=== PATIENT | female | born 1960 | race Caucasian/White ===

== ENCOUNTER 2020-04-08 06:52 | Inpatient (IN) | payer BC ==
[~2020-04-08] VITALS: Ht 162.6 cm; Wt 80.0 kg
[2020-04-08] VITALS (306 sets, daily range): BP systolic 101–113; BP diastolic 77–86; PULSE 102–121; TEMP 97.7–98.5; O2SAT 59–100
[~2020-04-08 06:52] MED LIST: BENICAR 20MG TA20 MG PO; CLEOCIN HC150 MG/CAP PO; HCTZ12.5TAB PO; LEVAQUIN 5500 MG/TAB PO; LEVAQUIN 750MG750 M1 PO; LOTENSIN 1010 MG/TAB PO; LOTENSIN HCT 101 TAB PO; PERCOCET 325 MG1 TA2 PO; PREDNISONE20 MG PO; PROAIR HFA0.09 MG/AC IH; TUMS500 MG PO; VICODIN 5/5001 UDTAB PO; XANAX .25M0.25 MG/TA PO
[2020-04-08 07:55] LABS: BASO % 0.3 % (0.0-2.0); GRAN # 4.6 (1.4-6.5); HEMATOCRIT 47.4 % (37.0-47.0); LYMPH % 27.3 % (20.0-51.0); MEAN CELL VOLUME 105 fl (80.0-100.0); MEAN CORPUSCULAR HEMOGLOBIN 35 pg (27.0-31.0); MEAN CORPUSCULAR HGB CONC 34 g/dl (33.0-37.0); MONO # 0.6 (0.1-0.6); MONO % 8.1 % (1.7-9.3); PLATELET COUNT 137 K/mm3 (130-400); RED BLOOD COUNT 4.53 M/mm3 (4.10-5.30); REDCELL DISTRIBUTION WIDTH-CV 14.6 % (11.5-14.5)
[2020-04-08 08:01] LABS: ALBUMIN 3.6 gm/dL (3.5-5.0); BILIRUBIN,TOTAL 0.7 mg/dL (0.0-1.0); CALCIUM 8.2 mg/dL (8.4-10.2); CREATININE, serum 0.76 (0.52-1.25); POTASSIUM 4.3 mmol/L (3.4-5.0); TOTAL PROTEIN 7.4 gm/dL (6.4-8.2)
[2020-04-08 09:14] LABS: ALCOHOL(ethanol),MEDICAL 392 mg/dL; TROPONIN-I 0.014 ng/mL (0.000-0.035)
[2020-04-08 09:23] LABS: INR 1.1 (0.8-3.0); PROTHROMBIN TIME 12.7 SECONDS (9.7-12.8)
[2020-04-08 12:04] LABS: COLLECTION METHOD CLEAN CATCH
[2020-04-08 12:06] LABS: ACETONE,SERUM NEGATIVE
[2020-04-08 12:22] LABS: HYALINE CAST >12 /lpf; MUCOUS Present /lpf; PH 6 (5-8); SQUAMOUS EPITHELIAL 0-2 /hpf; URINE APPEARANCE Clear; URINE BACTERIA Rare /hpf; URINE BILIRUBIN Negative (NEGATIVE); URINE BLOOD 2+ (NEGATIVE); URINE COLOR Yellow; URINE GLUCOSE Negative (NEGATIVE); URINE KETONE Negative (NEGATIVE); URINE LEUKOCYTE ESTERASE Negative (NEGATIVE); URINE NITRATE Negative (NEGATIVE); URINE PROTEIN(semi-quant) 2+ (NEGATIVE); URINE RBC 0-2 /hpf
[2020-04-08 12:25] LABS: TRICYCLIC ANTIDEPRESS URINE NEGATIVE
[2020-04-08] MEDS ORDERED: NORVASC 10MG10 MG PO (13:29)
[2020-04-08] MEDS ORDERED: LOTENSIN20 MG PO (13:30)
[2020-04-08] MEDS ORDERED: XANAX .25M0.25 MG/TA PO (13:31)
[2020-04-08] MEDS ORDERED: NORCO 325 MG-101 TAB PO (13:31)
--- NOTE | 2020-04-08 19:15 | NUR ---
Report given to Amanda CALDERON and care transfered.
--- NOTE | 2020-04-08 19:30 | NUR ---
Patient called nurse into room and stated "I can't feel this way" "can you talk to the doctor?". Patient repeated this statement several times while in the room. Patient had very visible tremors in hands and reported anxiety. Scored per CIWA scale and administered PRN ativan.
--- NOTE | 2020-04-08 21:00 | NUR ---
Patient appears more relaxed in bed; tremors are reduced. Reports that the ativan "helped". Will continue to monitor.
[2020-04-08 23:32] LABS: INR 1.2 (0.8-3.0); PROTHROMBIN TIME 13.7 SECONDS (9.7-12.8)
[2020-04-09] VITALS (835 sets, daily range): BP systolic 93–155; BP diastolic 77–106; PULSE 72–116; TEMP 97.7–98.7; O2SAT 63–100
--- NOTE | 2020-04-09 01:00 | NUR ---
Updated hospitalist on patient condition, and abdominal CT results. Lactic acid tending upwards. BP have been within normal limits. Some course lung sounds noted and Abd CT showed CHF. Instructed to decrease fluids to 60/hr. Discontinue fluids if pending lactic acid levels are below 2.5.
--- NOTE | 2020-04-09 04:11 | NUR ---
Che resting quietly in bed; no concerns at this time.
[2020-04-09 06:15] LABS: BASO % 0.3 % (0.0-2.0); EOS % 0.2 % (0-4.0); GRAN # 4.3 (1.4-6.5); GRAN % 69.6 % (42.2-75.2); HEMATOCRIT 37.1 % (37.0-47.0); LYMPH # 1.3 (1.2-3.4); LYMPH % 20.7 % (20.0-51.0); MEAN CELL VOLUME 104 fl (80.0-100.0); MEAN CORPUSCULAR HEMOGLOBIN 36 pg (27.0-31.0); MEAN CORPUSCULAR HGB CONC 35 g/dl (33.0-37.0); MEAN PLATELET VOLUME 9.2 fl (7.4-10.4); MONO # 0.5 (0.1-0.6); MONO % 8.9 % (1.7-9.3); PLATELET COUNT 117 K/mm3 (130-400); RED BLOOD COUNT 3.57 M/mm3 (4.10-5.30); REDCELL DISTRIBUTION WIDTH-CV 14.1 % (11.5-14.5)
[2020-04-09 06:16] LABS: HEMOGLOBIN 12.8 g/dl (12.5-16.0)
[2020-04-09 06:27] LABS: CALCIUM 7.7 mg/dL (8.4-10.2); CREATININE, serum 0.82 (0.52-1.25); MAGNESIUM 1.2 mg/dL (1.6-2.3); POTASSIUM 4.2 mmol/L (3.4-5.0)
--- NOTE | 2020-04-09 07:02 | NUR ---
Attempted to call provider regarding magnesium level. No Response; past on in report to YUMIKO Aleman.
--- NOTE | 2020-04-09 07:15 | NUR ---
Report received from Amanda CALDERON and care resumed.
--- NOTE | 2020-04-09 07:30 | NUR ---
Spoke with Margarette nair regarding am labs. See chart for orders.
--- NOTE | 2020-04-09 09:28 | NUR ---
Dr Ayala in to see pt at this time.
--- NOTE | 2020-04-09 10:14 | NUR ---
Dr Kelly in to see pt at this time.
--- NOTE | 2020-04-09 13:14 | NUR ---
Plan: To return home with her son geovanny [phone] and sister Shivani [phone] as care support and EMR. Patient reported that she did ot have a DPOA and declined one at this time. they reside in [facility]. Assess: Patient reports that she does not use any DME, and that she does not have a PCP, as she recently moved from [place]. patient also indicated that she had been without medications for a while. CHRISTINE discussed hamida ugarte [facility] with patient and reported that if she would like to be connected and scheduled Case Management could assist. patient did mention a concern with paying her hospital bill, and so Sw discussed and provided a financial assistance application to patient. Patient did indicated that she had insurance [place] [employer]. She declined [facility] at this time. Action: CHRISTINE may need to follow up to connect patient with primary care services, and financial counseling as a F/U.
--- NOTE | 2020-04-09 19:00 | NUR ---
Bedside report received from YUMIKO Aleman. Patient care received.
--- NOTE | 2020-04-09 19:09 | NUR ---
Report given to Amanda CALDERON and care transfered.
[2020-04-10] VITALS (305 sets, daily range): BP systolic 92–123; BP diastolic 70–95; PULSE 73–91; TEMP 97.5–98.5; O2SAT 82–100
--- NOTE | 2020-04-10 | NUR ---
Patient tearful; has anxiety regarding possible cardioversion and TINY this morning. This nurse answered patient questions regarding procedure and attempted to re-assure her. Scored per CIWA protocol.
[2020-04-10 05:34] LABS: BASO % 0.5 % (0.0-2.0); EOS % 0.3 % (0-4.0); GRAN # 2.3 (1.4-6.5); GRAN % 59.2 % (42.2-75.2); HEMATOCRIT 36.7 % (37.0-47.0); HEMOGLOBIN 12.5 g/dl (12.5-16.0); LYMPH # 1.2 (1.2-3.4); LYMPH % 31.9 % (20.0-51.0); MEAN CELL VOLUME 102 fl (80.0-100.0); MEAN CORPUSCULAR HEMOGLOBIN 35 pg (27.0-31.0); MEAN CORPUSCULAR HGB CONC 34 g/dl (33.0-37.0); MEAN PLATELET VOLUME 9.4 fl (7.4-10.4); MONO # 0.3 (0.1-0.6); MONO % 7.8 % (1.7-9.3); PLATELET COUNT 107 K/mm3 (130-400); REDCELL DISTRIBUTION WIDTH-CV 13.8 % (11.5-14.5)
[2020-04-10 05:41] LABS: CALCIUM 7.8 mg/dL (8.4-10.2); CREATININE, serum 0.64 (0.52-1.25)
[2020-04-10 06:24] LABS: CLOSTRIDIUM DIFF A/B NEG; CLOSTRIDIUM DIFF A/B INTERP No C.diff present
--- NOTE | 2020-04-10 09:02 | NUR ---
Cardiology in to see patient. OK to DC from their standpoint, provided patient remains SR. Gtt stopped at 0840. Pt verbalizing desire to go home and sleep in her own bed.
--- NOTE | 2020-04-10 11:08 | NUR ---
CHRISTINE met with the patient to revisit the discharge plan of returning home. The patient states she has no concerns about returning home. She states she is getting up to toilet on her own. There are no additional needs at this time.
--- NOTE | 2020-04-10 11:39 | NUR ---
The patient has orders to transfer to the medical floor.
--- NOTE | 2020-04-10 13:15 | NUR ---
Report to Medical, patient transferred, on telemetry, with belongings, to room 353. RN notified of patient arrival.
--- NOTE | 2020-04-10 14:16 | NUR ---
First visit from the director of restaurant operations. No needs right now.
--- NOTE | 2020-04-10 19:30 | NUR ---
Initial shift assessment done- states she is very anxious, some tremors noted to arms/hands- on detox protocol so will give Ativan IV at this time ,, Tele on,SR,, INT to right wrist, Up to BSC with assist-voiding good amounts yasemin urine. Understands to call for help to BSC- bed alarm on
--- NOTE | 2020-04-10 19:55 | NUR ---
Patient is alert and oriented. denies any pain. she shows signs of anxiety and moderate tremor. Ativan administere as needed for DETOX protocol. Patient is on have multiple bruises on her arms. Patient state she bruises easily. right lower lobe have fine crackles, other lobes are clear to auscultation
--- NOTE | 2020-04-10 20:00 | NUR ---
report given to YUMIKO Squires.
[2020-04-11] VITALS (8 sets, daily range): BP systolic 114–126; BP diastolic 80–96; PULSE 91–98; TEMP 97.4–98.3
--- NOTE | 2020-04-11 05:30 | NUR ---
States having a panic attack- crying, states she doesnt know whats going on- states she is shaking, dropping things and cant walk anymore-- up to BS, unsteady on feet, states cant control her urine since they took the catheter out-- on detox- will give Ativan based on score- states she will go AMA today if they dont let her go home, states she has to pay rent and her internet will be shut off-- talked with pt for awhile, told her to just rest and doctor will be in today to talk with her--VSS, Tele on, rough night- has not slept much
[2020-04-11 07:59] LABS: BASO % 0.3 % (0.0-2.0); EOS % 0.6 % (0-4.0); GRAN # 2.1 (1.4-6.5); GRAN % 64.3 % (42.2-75.2); HEMATOCRIT 38.7 % (37.0-47.0); HEMOGLOBIN 13.1 g/dl (12.5-16.0); LYMPH # 0.9 (1.2-3.4); LYMPH % 26.3 % (20.0-51.0); MEAN CELL VOLUME 105 fl (80.0-100.0); MEAN CORPUSCULAR HEMOGLOBIN 36 pg (27.0-31.0); MEAN CORPUSCULAR HGB CONC 34 g/dl (33.0-37.0); MONO # 0.3 (0.1-0.6); MONO % 8.2 % (1.7-9.3); PLATELET COUNT 105 K/mm3 (130-400); RED BLOOD COUNT 3.69 M/mm3 (4.10-5.30); REDCELL DISTRIBUTION WIDTH-CV 14.1 % (11.5-14.5)
[2020-04-11 08:23] LABS: CALCIUM 7.9 mg/dL (8.4-10.2); CREATININE, serum 0.53 (0.52-1.25); POTASSIUM 3.3 mmol/L (3.4-5.0)
[2020-04-11 11:34] LABS: MAGNESIUM 1.7 mg/dL (1.6-2.3); PHOSPHOROUS 2.5 mg/dL (2.5-4.5)
--- NOTE | 2020-04-11 11:34 | NUR ---
.Patient is alert and oriented. episodes of anxiety, denies any pain. one episode of incontinence when anxious. Patient detox score range from 3-6.
--- NOTE | 2020-04-11 12:00 | NUR ---
SW attended clinical rounds. The patient would like to discharge back home today. Awaiting the patient's test results and cardiologies recommendations. SW's then followed up with the patient to address her alcohol use and getting established with a PCP. The patient reports that she drinks 1/2 of liquor a day. She states that she is interested in quitting and plans to do so on her own. She was not interested in any outpatient/inpatient treatment. She reports that AA meetings helped her in the past. CHRISTINE offered to provide her with a list of the different AA meetings in [place]. The patient reports that she is able to look this up on her own. The patient reports that she does have health insurance and provided SW with her insurance information. CHRISTINE provided this to Financial Counselor, Narda. The patient was interested in getting a list of the different providers in [place] and would like to look it over, before making a decision. SW to continue to follow.
--- NOTE | 2020-04-11 15:20 | NUR ---
Patient is resting in the bed at this time
--- NOTE | 2020-04-11 19:45 | NUR ---
Initial shift assessment done- Up to bedside commode,did have some liquid/loose greenish colored stool--will give Immodium as ordered. States doesnt understand why she feels "wobbly" when she gets up,, pt on detox protocol--getting p.o Ativan as needed,, teary when talking about needs to going home, VSS, Tele on-no afib
[2020-04-12] VITALS (10 sets, daily range): BP systolic 112–132; BP diastolic 82–104; PULSE 82–105; TEMP 97.2–98.6
--- NOTE | 2020-04-12 03:00 | NUR ---
Awake, crying, states shes very anxious-- has been sleeping well for the past 4 hours-- will give 2 mg Ativan p.o at this time- based on detox score. Up to BSC-unsteady on feet.
[2020-04-12 06:47] LABS: BASO % 0.4 % (0.0-2.0); EOS % 0.9 % (0-4.0); GRAN # 2.8 (1.4-6.5); GRAN % 61.7 % (42.2-75.2); HEMATOCRIT 40.4 % (37.0-47.0); HEMOGLOBIN 13.8 g/dl (12.5-16.0); LYMPH # 1.3 (1.2-3.4); LYMPH % 27.8 % (20.0-51.0); MEAN CELL VOLUME 103 fl (80.0-100.0); MEAN CORPUSCULAR HEMOGLOBIN 35 pg (27.0-31.0); MEAN CORPUSCULAR HGB CONC 34 g/dl (33.0-37.0); MEAN PLATELET VOLUME 10.1 fl (7.4-10.4); MONO # 0.4 (0.1-0.6); PLATELET COUNT 110 K/mm3 (130-400); RED BLOOD COUNT 3.92 M/mm3 (4.10-5.30)
[2020-04-12 06:59] LABS: CALCIUM 8.2 mg/dL (8.4-10.2); CREATININE, serum 0.55 (0.52-1.25); POTASSIUM 3.6 mmol/L (3.4-5.0)
[2020-04-12] MEDS ORDERED: LOPRESSOR 225 MG/TAB PO ×2 (09:13)
[2020-04-12] MEDS ORDERED: FOLIC ACID 11 MG/TA1 PO (09:14)
[2020-04-12] MEDS ORDERED: THIAMINE 1100 MG/TAB PO (09:14)
[2020-04-12] MEDS ORDERED: ELIQUIS 5MG PO (09:16)
[2020-04-12] MEDS ORDERED: IMODIUM 2MG CAPS2 MG PO (09:25)
--- NOTE | 2020-04-12 09:52 | NUR ---
Assessment complete. Patient alert and oriented sitting up in bed at this time. States he feels fine, just tired and ready to go home. Denies pain but states she is pretty anxious, PRN xanax was provided this. No other obvious withdrawl signs are present. No IV site as it was pulled by patient lsat night and extern was unable to place a new one, no need for a new one as she is leaving. Pt also requested an immodium after using the restroom, but could not describe her stool but insisted on taking the immodium, this was provided for her. No other needs were expressed at this time. Call light is in reach. Fall precautions are in place.
--- NOTE | 2020-04-12 09:52 | NUR ---
SW attended clinical rounds. The hospitalist discussed PT's recommendation of SNF. The patient refuses SNF. She states that she will be able to get around at home and that her son will be at their home at all times to help her. She states that she would be agreeable to getting a FWW and chose [facility]. CHRISTINE contacted and faxed the FWW order to Lilly at [facility]. Awaiting delivery of FWW. CHRISTINE also followed up about preference for a PCP. The patient chose [facility] and preferred Dr. Holloway. Caro KING, contacted and secured the patient an appointment with Dr. Holloway on 04/20 at 1115. CHRISTINE notified the patient's RN of the appointment. No additional needs at this time.
[2020-04-12] MEDS ORDERED: ALDACTONE 25MG25 M1 PO (12:35)
[2020-04-12] MEDS ORDERED: LASIX 20MG TABL20 MG PO (12:35)
[2020-04-12] MEDS ORDERED: PRINIVIL5 MG PO (12:35)
--- NOTE | 2020-04-12 14:11 | NUR ---
Patient was originally going to leave [facility] after being told by Dr. Duarte that she needs to stay to recieve treatment for the swelling and fluid overload she is experiencing. She has since decided against this and is willing to stay. She stated "It would be selfish for me to leave so I will stay". I am continuing to monitor her. NO other needs at this time. Call light is in reach.
--- NOTE | 2020-04-12 17:34 | NUR ---
pTS BLOOD SUGAR WAS 35 ON CHECK PER HAT BRAIDER, RECHECKED PER VERBAL ORDER VIA [facility] AND GOT A READING OF 43. HYPOGLYCEMIC PROTOCOL WAS INITIATED AND 1/2 HAS BEEN GIVEN. WILL CONTINUE TO MONITOR SUGARS PER ORDERS.
--- NOTE | 2020-04-12 21:55 | NUR ---
Pt assessment completed and documented. Pt just woke up at this time and assisted to bedside commode. VSS. Alcohol detox protocol documented per orders-no ativan needed at this time per detox score. Pt alert and oriented x4. PT requesting anxiety medication at this time. PRN xanax given per orders. INT to right wrist without complications. PT denies any other needs. Bed alarm on. Call light within reach. Will continue to monitor.
[2020-04-13] VITALS (7 sets, daily range): BP systolic 109–134; BP diastolic 82–102; PULSE 91–106; TEMP 97.5–98.4
--- NOTE | 2020-04-13 05:12 | NUR ---
Pt had uneventful shift. Pt awake on and off during the night to use bedside commode. Anytime pt would wake up to use commode, pt would become tearful stating multiple times that "she just wants to go home". Pt was able to go back to bed and rest after using commode. PRN tylenol given x1 per orders for back/leg pain. INT to right wrist without complications. Pt denies any other needs at this time. Call light within reach. Bed alarm on.
[2020-04-13 06:51] LABS: BASO % 0.5 % (0.0-2.0); EOS # 0.1 (0.0-0.7); EOS % 1.3 % (0-4.0); GRAN # 2.1 (1.4-6.5); GRAN % 56.7 % (42.2-75.2); HEMATOCRIT 40.3 % (37.0-47.0); HEMOGLOBIN 13.7 g/dl (12.5-16.0); LYMPH # 1.1 (1.2-3.4); LYMPH % 30.5 % (20.0-51.0); MEAN CELL VOLUME 104 fl (80.0-100.0); MEAN CORPUSCULAR HEMOGLOBIN 35 pg (27.0-31.0); MEAN CORPUSCULAR HGB CONC 34 g/dl (33.0-37.0); MEAN PLATELET VOLUME 9.7 fl (7.4-10.4); MONO # 0.4 (0.1-0.6); MONO % 10.7 % (1.7-9.3); PLATELET COUNT 123 K/mm3 (130-400); RED BLOOD COUNT 3.87 M/mm3 (4.10-5.30); REDCELL DISTRIBUTION WIDTH-CV 14.5 % (11.5-14.5)
[2020-04-13 07:06] LABS: CALCIUM 8.2 mg/dL (8.4-10.2); CREATININE, serum 0.62 (0.52-1.25); MAGNESIUM 1.4 mg/dL (1.6-2.3); POTASSIUM 3.8 mmol/L (3.4-5.0)
--- NOTE | 2020-04-13 09:08 | NUR ---
Lilly, at [facility], reports that the patient's insurance does not cover out of state. She states the patient would have to private pay $149.00. Lilly states that they can do a financial hardship with the patient, but that they would have the patient sign a waiver, in the event financial hardship is denied. She states that it will likely be denied, due to the patient having insurance. CHRISTINE informed the patient of this. The patient reports that she does not want to pursue with getting a walker right now and that she could look online for one. SW to continue to follow.
--- NOTE | 2020-04-13 10:07 | NUR ---
BRIAN NOTE: PT AOX4. STATES "I AM EXPERIENCING WITHDRAWAL SYMPTOMS AND WOULD LIKE SOME MEDICINE". VITALS CHARTED. NO DIAPHORESIS OR TREMORS NOTED. PT TEARY. PRN XANAX GIVEN. DENIES CP, N/V, GREEN. REPORTS BASELINE DOESN'T 'EAT ALOT'. ATE 60% BREAKFAST. PT PLEASANT MOOD AND MAKING JOKES ABOUT TV. WILL CONT TO MONITOR
[2020-04-13] MEDS ORDERED: LOPRESSOR 225 MG/TAB PO (12:06)
--- NOTE | 2020-04-13 17:18 | NUR ---
PT DISCHARGED TO HOME @ 1700 ACCOMPANIED BY SON. AOX4. INDEPENDENT AMBULATION WITH MILD SWAYING GAIT. STATES CHRONIC BACK PAIN. DC INSTRUCTIONS REVIEWED AND PT STATES OTHER SON IS ENROUTE TO GRAIN THRESHER FROM PHARMACY. IV MAGNESIUM COMPLETE AND DC'D. NO TREMORS NOTED. DENIES GREEN, N/V, VISION CHANGES, PALPITATIONS, HALLUCINATIONS. PLEASANT MOOD. NO NEW CONCERNS
== END 2020-04-13 17:00 | disposition home or self-care (01) | DRG 308 ==
LOC: COL.ER 06:52 → MEDICAL 09:16 → ICU 09:16 → MEDICAL 04-10 14:16
PROVIDERS: Emergency Medicine; Hospitalist; ADMIT Student in an Organized Health Care Education/Training Program
DX: I48.91 Unspecified atrial fibrillation (principal); I50.21 Acute systolic (congestive) heart failure; E87.2 Acidosis; K86.0 Alcohol-induced chronic pancreatitis; I11.0 Hypertensive heart disease with heart failure; M54.40 Lumbago with sciatica, unspecified side; F17.210 Nicotine dependence, cigarettes, uncomplicated; K52.9 Noninfective gastroenteritis and colitis, unspecified; F12.10 Cannabis abuse, uncomplicated; F10.20 Alcohol dependence, uncomplicated; E83.42 Hypomagnesemia; E87.6 Hypokalemia; I42.9 Cardiomyopathy, unspecified; E03.9 Hypothyroidism, unspecified; F41.9 Anxiety disorder, unspecified; I44.7 Left bundle-branch block, unspecified; Z88.1 Allergy status to other antibiotic agents
CPT/HCPCS: 99223-AI; 99232-AI; 99233-AI; 99239; J0780; J1650; J1885; J1940; J2060; J2543; J3370; J3475; J7030; J7050; Q9967

== ENCOUNTER 2020-05-28 21:16 | Inpatient (IN) | payer BC, OTHER ==
[~2020-05-28] VITALS: Ht 162.6 cm; Wt 72.4 kg
[~2020-05-28 21:16] MED LIST changes: +ALDACTONE 25MG25 M1 PO; +ELIQUIS 5MG PO; +FOLIC ACID 11 MG/TA1 PO; +IMODIUM 2MG CAPS2 MG PO; +LASIX 20MG TABL20 MG PO; +LOPRESSOR 225 MG/TAB PO; +LOTENSIN20 MG PO; +NORCO 325 MG-101 TAB PO; +NORVASC 10MG10 MG PO; +PRINIVIL5 MG PO; +THIAMINE 1100 MG/TAB PO
[2020-05-28 22:01] LABS: HEMATOCRIT 37.2 % (37.0-47.0); HEMOGLOBIN 12.8 g/dl (12.5-16.0); MEAN CELL VOLUME 104 fl (80.0-100.0); MEAN CORPUSCULAR HEMOGLOBIN 36 pg (27.0-31.0); MEAN CORPUSCULAR HGB CONC 34 g/dl (33.0-37.0); MEAN PLATELET VOLUME 9.6 fl (7.4-10.4); PLATELET COUNT 108 K/mm3 (130-400); RED BLOOD COUNT 3.57 M/mm3 (4.10-5.30); REDCELL DISTRIBUTION WIDTH-CV 13.5 % (11.5-14.5)
[2020-05-28 22:14] LABS: ALBUMIN 3.5 gm/dL (3.5-5.0); BILIRUBIN,TOTAL 1.1 mg/dL (0.0-1.0); C-REACTIVE PROTEIN 8.4 mg/dL (0.0-0.9); CREATININE, serum 0.71 (0.52-1.25); POTASSIUM 4.4 mmol/L (3.4-5.0); TOTAL PROTEIN 7.5 gm/dL (6.4-8.2)
[2020-05-28 22:24] LABS: BAND 1 % (0-10); LYMPHOCYTE 15 % (20.0-51.0); MYELOCYTE 1 % (0-0); NEUTROPHILS 81 % (42.0-75.2); PLATELET ESTIMATE DECREASED (NORMAL)
[2020-05-29] VITALS (490 sets, daily range): BP systolic 108–139; BP diastolic 65–96; PULSE 93–110; TEMP 98.1–98.5; O2SAT 43–100
[2020-05-29 01:29] LABS: COLLECTION METHOD CLEAN CATCH
[2020-05-29 01:36] LABS: PH 6 (5-8); SQUAMOUS EPITHELIAL 0-2 /hpf; URINE APPEARANCE Hazy; URINE BACTERIA Rare /hpf; URINE BILIRUBIN Negative (NEGATIVE); URINE BLOOD 1+ (NEGATIVE); URINE COLOR Yellow; URINE GLUCOSE Negative (NEGATIVE); URINE KETONE Negative (NEGATIVE); URINE LEUKOCYTE ESTERASE Negative (NEGATIVE); URINE NITRATE Negative (NEGATIVE); URINE PROTEIN(semi-quant) 1+ (NEGATIVE); URINE RBC 0-2 /hpf
[2020-05-29 01:48] LABS: TRICYCLIC ANTIDEPRESS URINE NEGATIVE
[2020-05-29 02:08] LABS: MAGNESIUM 1.7 mg/dL (1.6-2.3); PHOSPHOROUS 4.4 mg/dL (2.5-4.5)
--- NOTE | 2020-05-29 03:24 | NUR ---
Received report from YUMIKO Lyman.
[2020-05-29 03:25] LABS: ARTERIAL BLD GAS O2 SATURATION 96.8 % (92-100); ARTERIAL BLD GAS TCO2 CT 23.5; ARTERIAL BLOOD GAS BASE EXCESS -2.4 (-2-2); ARTERIAL BLOOD GAS HCO3 22.3 meq/L (22-26); ARTERIAL BLOOD GAS PCO2 38.1 mmHg (35-45); ARTERIAL BLOOD GAS PO2 110.7 mmHg (80-100); ARTERIAL BLOOD GAS pH 7.39 (7.35-7.45)
--- NOTE | 2020-05-29 03:36 | NUR ---
Patient arrives to ICU room 7 via ED stretcher. Patient is A&Ox4; able to slide onto ICU bed with one-person assist. Vitals within normal limits; she reports 8/10 pain in her ribs/when inhaling due to previous fall that occured approximately one week ago. BUE are scattered with scabs, which she states are due to playing with a puppy. She has a large purple bruise to the right shoulder/scapula area, reportedly due to the fall. Bruising is also noted to the left upper extremity. Feet are edematous, dry, and flaking; her soles are discolored black with what appears to be dirt. No other skin issues noted at this time. Avani aware of patient's arrival. Will continue to monitor.
[2020-05-29 04:21] LABS: BASO % 0.3 % (0.0-2.0); EOS % 0.1 % (0-4.0); GRAN # 5.8 (1.4-6.5); GRAN % 78.7 % (42.2-75.2); HEMOGLOBIN 11.8 g/dl (12.5-16.0); LYMPH # 1.2 (1.2-3.4); LYMPH % 16.4 % (20.0-51.0); MEAN CELL VOLUME 104 fl (80.0-100.0); MEAN CORPUSCULAR HEMOGLOBIN 36 pg (27.0-31.0); MEAN CORPUSCULAR HGB CONC 34 g/dl (33.0-37.0); MEAN PLATELET VOLUME 9.7 fl (7.4-10.4); MONO # 0.3 (0.1-0.6); PLATELET COUNT 96 K/mm3 (130-400); RED BLOOD COUNT 3.32 M/mm3 (4.10-5.30); REDCELL DISTRIBUTION WIDTH-CV 13.5 % (11.5-14.5)
[2020-05-29 04:23] LABS: HEMATOCRIT 34.5 % (37.0-47.0)
[2020-05-29 04:32] LABS: ALBUMIN 3.2 gm/dL (3.5-5.0); BILIRUBIN,TOTAL 1.2 mg/dL (0.0-1.0); CREATININE, serum 0.64 (0.52-1.25); POTASSIUM 3.6 mmol/L (3.4-5.0); TOTAL PROTEIN 6.8 gm/dL (6.4-8.2)
[2020-05-29 09:07] LABS: CLOSTRIDIUM DIFF A/B NEG; CLOSTRIDIUM DIFF A/B INTERP No C.diff present
[2020-05-30] VITALS (539 sets, daily range): BP systolic 112–139; BP diastolic 82–103; PULSE 74–104; TEMP 97.5–98.3; O2SAT 46–100
[2020-05-30 06:33] LABS: HEMATOCRIT 34.1 % (37.0-47.0); HEMOGLOBIN 11.6 g/dl (12.5-16.0); MEAN CELL VOLUME 102 fl (80.0-100.0); MEAN CORPUSCULAR HEMOGLOBIN 35 pg (27.0-31.0); MEAN CORPUSCULAR HGB CONC 34 g/dl (33.0-37.0); MEAN PLATELET VOLUME 10.5 fl (7.4-10.4); PLATELET COUNT 111 K/mm3 (130-400); RED BLOOD COUNT 3.33 M/mm3 (4.10-5.30); REDCELL DISTRIBUTION WIDTH-CV 12.6 % (11.5-14.5)
[2020-05-30 06:41] LABS: CALCIUM 8.3 mg/dL (8.4-10.2); CREATININE, serum 0.61 (0.52-1.25); MAGNESIUM 1.9 mg/dL (1.6-2.3); PHOSPHOROUS 2.8 mg/dL (2.5-4.5); POTASSIUM 3.8 mmol/L (3.4-5.0); TOTAL PROTEIN 6.5 gm/dL (6.4-8.2)
--- NOTE | 2020-05-30 07:00 | NUR ---
PT CIWA scored from 11-13 for a majority of the night. At one point, PT noted having auditory hallucinations and thought she heard her son saying her name with her responding by asking him for beer. PT immediately realized she was hallucinating and was visibly disturbed by this. Provider notified and orders received, see physician notification documentation. PT asked for pain medications on and off, specifially opioids and talked about her previous pain regimen. Stated "but I'm responsible with my medications, I'm not an addict or abusing them". RN was later notified by RT that patient said "I wish my nurse would hurry up and bring me my late Ativan. If I really wanted to, I could just go out on the streets and get whatever I wanted." PT CIWA lowered to 4 after giving PO valium, IV valium, Ativan, and starting a precedex gtt. PT noted to be snoring and resting well, awakens easily to voice.
[2020-05-30 07:17] LABS: BAND 5 % (0-10); LYMPHOCYTE 2 % (20.0-51.0); NEUTROPHILS 92 % (42.0-75.2); PLATELET ESTIMATE DECREASED (NORMAL)
--- NOTE | 2020-05-30 10:02 | NUR ---
Speech Language Pathologist attempted to meet with the patient to complete initial intake. The patient was hard to rouse. Will attempt at a later time.
--- NOTE | 2020-05-30 11:57 | NUR ---
First visit from the outside operator. No needs right now.
--- NOTE | 2020-05-30 14:30 | NUR ---
Enterprise Services Manager met with the patient to complete initial intake. SW roused the patient but she is on precedex. The patient tested positive for amphetamines, methamphetamines, and cannabinoids at admission. The patient is currently is on CIWA protocal. Per nurse scoring 4-8. The patient lives in [place] with her son, George # [phone]. The patient fell asleep and no longer answered questions. SW attempted to contact George to complete intake, left message. SW attempted to contact the patient's sister and the phone number was not correct. The patient's nurse reports George is supposed to bring the patient's phone. SW will attempt to contact the patient's son later. Will continue to monitor.
--- NOTE | 2020-05-30 16:28 | NUR ---
The patient is awake and able to continue the intake. The patient recently moved back to [place] from [place]. The patient denies DME use. The patient is currently on oxygen. The patient's PCP is Dr. Koo before she moved and will likely continue with him now that she has moved back. The patient does not have advanced directives in the EMR but was interested in a DPOA-HC form. Form provided. The patient states she will likely designate her sister, Elva Bennett from [place], [place]. The patient plans to return home at discharge. SW will continue to follow for needs.
--- NOTE | 2020-05-30 20:13 | NUR ---
Report to oncoming shift. Pt remains on precedex gtt. Up to BSC several times throughout shift, using call system appropriately, strength improving. SPO2 with activity noted in 87-88 range, continuing NC O2 at 2L. Visitor in earlier in shift and provided patient with her own personal cell phone.
[2020-05-31] VITALS (160 sets, daily range): BP systolic 123–139; BP diastolic 85–108; PULSE 41–115; TEMP 97.1–98.7; O2SAT 60–100
--- NOTE | 2020-05-31 00:15 | NUR ---
Precedex gtt lowered to 0.2 mcg/kg/hr to 0 due to frequent bradycardia in the low 40's. Provider notified. See physician notification documentation.
[2020-05-31 05:52] LABS: HEMOGLOBIN 12.2 g/dl (12.5-16.0); MEAN CELL VOLUME 101 fl (80.0-100.0); MEAN CORPUSCULAR HEMOGLOBIN 36 pg (27.0-31.0); MEAN CORPUSCULAR HGB CONC 36 g/dl (33.0-37.0); MEAN PLATELET VOLUME 10.1 fl (7.4-10.4); PLATELET COUNT 132 K/mm3 (130-400); RED BLOOD COUNT 3.38 M/mm3 (4.10-5.30); REDCELL DISTRIBUTION WIDTH-CV 12.7 % (11.5-14.5)
[2020-05-31 05:59] LABS: ALBUMIN 2.8 gm/dL (3.5-5.0); BILIRUBIN,TOTAL 0.9 mg/dL (0.0-1.0); CALCIUM 8.2 mg/dL (8.4-10.2); CREATININE, serum 0.62 (0.52-1.25); POTASSIUM 4.2 mmol/L (3.4-5.0); TOTAL PROTEIN 6.2 gm/dL (6.4-8.2)
--- NOTE | 2020-05-31 07:00 | NUR ---
PT CIWA score ranged from 3-9 throughout the night. When patient was resting, she was noted to be snoring and drowsy. However, when anxious, PT suddenly would awaken from deep sleep, stating that she needed Ativan because she was "seeing weird colors in the corner, I can hear my son and my dog." Would become very anxious and tachycardic. PT attempted to call son several times throughout the night leaving voicemails stating "You'd better bring my phone today or there will be hell to pay. I know what you're up to and you're not as good of a player as you think you are. Call me back immediately!" PT stated anxiety about not having her phone and thinking that her son was "up to no good" because he had her phone, paycheck, and car.
[2020-05-31 07:42] LABS: BAND 4 % (0-10); LYMPHOCYTE 2 % (20.0-51.0); NEUTROPHILS 92 % (42.0-75.2); PLATELET ESTIMATE DECREASED (NORMAL)
--- NOTE | 2020-05-31 14:59 | NUR ---
PT TRANSFERRED TO ROOM 354, REPORT CALLED TO YUMIKO ANDUJAR, PRIOR TO TRANSPORT. PT AWARE AND AGREEABLE TO TRANSFER. TRANSPORTED VIA WHEELCHAIR WITH ALL BELONGINGS. ALERT AND ORIENTED X4 AT TIME OF TRANSPORT. PT DENIES FURTHER NEEDS AT TIME OF TRANSPORT.
--- NOTE | 2020-05-31 16:17 | NUR ---
PT/OT are recommending post acute rehab. Logging Crew Supervisor met with the patient to present Medicare.gov's list of post acute rehab and coating machine helper that serve the [facility]. The patient would like to think about it but was not sure she wanted rehab. The patient informed the SW that she would like follow ups set up with Dr. Koo. Will continue to follow.
--- NOTE | 2020-05-31 19:38 | NUR ---
patient asleep before RN could adminster 1800 detox ativan. gave report to deck mate RN.
--- NOTE | 2020-05-31 19:40 | NUR ---
Report received from YUMIKO Contreras. Pt sleeping in bed at this time.
--- NOTE | 2020-05-31 20:40 | NUR ---
Assessment completed. Pt sitting up in bed at this time. Reports pain in upper back 8/10 and feelings of anxiety. Fine tremors noted BUE. Pt appears slightly agitated but is calmed easily, cooperative and friendly with this RN. Coarse crackles noted over bilateral upper lung chambers. Pt reports having a decreased appetite over the past few days, denies nausea and vomiting. PICC to right upper arm in place, both ports with blood return noted and flush easily.
[2020-06-01] VITALS (12 sets, daily range): BP systolic 109–143; BP diastolic 78–95; PULSE 83–120; TEMP 97.2–98.5
--- NOTE | 2020-06-01 06:27 | NUR ---
Pt has rested in bed throughout shift, sleeping intermittently. Alcohol detox scores obtained every two hours ranging from a low score of 2 to a high score of 9. Pt reported hallucinations twice during night. Ativan given PO per orders when needed, IV ativan given once due to visible agitation of patient and detox score of 9. PO oxycodone given twice this shift per orders for pain scores 8-9/10. Zosyn currently running at 25 ml/hr to right upper arm PICC.
[2020-06-01 07:47] LABS: GRAN # 3.6 (1.4-6.5); GRAN % 89.8 % (42.2-75.2); HEMOGLOBIN 12.2 g/dl (12.5-16.0); LYMPH # 0.2 (1.2-3.4); LYMPH % 5.5 % (20.0-51.0); MEAN CELL VOLUME 102 fl (80.0-100.0); MEAN CORPUSCULAR HEMOGLOBIN 35 pg (27.0-31.0); MEAN CORPUSCULAR HGB CONC 34 g/dl (33.0-37.0); MEAN PLATELET VOLUME 10.5 fl (7.4-10.4); MONO # 0.2 (0.1-0.6); PLATELET COUNT 145 K/mm3 (130-400); RED BLOOD COUNT 3.49 M/mm3 (4.10-5.30); REDCELL DISTRIBUTION WIDTH-CV 12.8 % (11.5-14.5)
[2020-06-01 07:49] LABS: HEMATOCRIT 35.7 % (37.0-47.0)
--- NOTE | 2020-06-01 07:57 | NUR ---
IN TO ASSESS PATIENT. SHE IS LYING IN BED WITH VISIBLE TREMORS IN HER HANDS. PATIENT IS ALERT AND ORIENTATED. PATIENT STATES THAT SHE IS JUST WAKING UP. LUNGS ARE CORASE IN SOUND.
[2020-06-01 08:01] LABS: ALBUMIN 2.9 gm/dL (3.5-5.0); BILIRUBIN,TOTAL 0.7 mg/dL (0.0-1.0); CALCIUM 8.3 mg/dL (8.4-10.2); CREATININE, serum 0.69 (0.52-1.25); MAGNESIUM 1.7 mg/dL (1.6-2.3); POTASSIUM 3.8 mmol/L (3.4-5.0); TOTAL PROTEIN 6.1 gm/dL (6.4-8.2)
--- NOTE | 2020-06-01 12:18 | NUR ---
PATIENT WAS HELPED TO THE RESTROOM AND NOW LAYING IN BED WAITING ON LUNCH
--- NOTE | 2020-06-01 15:18 | NUR ---
The patient's RN notified CHRISTINE that the patient is having problems with her son and him taking money. CHRISTINE then met with the patient to follow up. The patient reports that her sister in [place] notified her that $1,400.00 was transferred from her bank account through the adri, [employer]. The patient states that her son has her phone and wallet and transferred the money into his account. She states that she spoke to her bank and they issued $200 back to her. She states that she does not want to make a police report right now. She states that she would prefer to do so, when she returns home and after she has spoken to her bank some more. SW followed up with her about post-acute rehab vs home health. The patient reports that she is anxious and does not want to think about that now. She states that she just wants to return home and hopes to discharge tomorrow. She states that her friend, Celeste, should be able to take her home. CHRISTINE attempted to contact the patient's son, George. CHRISTINE left him a voicemail. SW to continue to follow.
--- NOTE | 2020-06-01 18:27 | NUR ---
PATIENT HAS BEEN ANXIOUS ABOUT HER SON TAKING MONEY OUT OF HER ACCOUNT. PATIENT HAS BEEN EDUCATED THAT IV ATIVAN AND PO ATIVAN ARE THE SAME THING. PICC LINE RUNNING WELL WITH NO ISSUES. PATIENT HAS SCORED ANYWHERE FROM A 2-8 ON THE CIWA SCALE. PRN ATIVAN GIVEN ACCORDINGLING. WILL REPORT OFF TO CONCRETE FINISHING MACHINE OPERATOR.
--- NOTE | 2020-06-01 21:11 | NUR ---
Pt resting in bed, states pain in her back rated an 8 out of 10. lungs have crackles in bases bilaterally, denies shortness of breath. heart sounds are regular with S1 and S2 present. detox score was 5, gave ativan PO per protocol, documented in DEC. no other needs at this time, will continue to monitor.
[2020-06-02] VITALS (11 sets, daily range): BP systolic 113–144; BP diastolic 73–92; PULSE 84–107; TEMP 97.1–98.6
--- NOTE | 2020-06-02 05:36 | NUR ---
Patient has been receiving PRN Ativan per detox protocol. Has received PRN Roxicodone for pain. Has not slept this shift. Awake and anxious. High fall risk precautions remain in place. Call light within reach.
[2020-06-02 06:33] LABS: EOS % 0.4 % (0-4.0); GRAN # 2.9 (1.4-6.5); GRAN % 50.9 % (42.2-75.2); LYMPH # 2.2 (1.2-3.4); LYMPH % 39.5 % (20.0-51.0); MEAN CELL VOLUME 102 fl (80.0-100.0); MEAN CORPUSCULAR HEMOGLOBIN 35 pg (27.0-31.0); MEAN CORPUSCULAR HGB CONC 34 g/dl (33.0-37.0); MONO # 0.5 (0.1-0.6); MONO % 8.7 % (1.7-9.3); PLATELET COUNT 155 K/mm3 (130-400); RED BLOOD COUNT 3.46 M/mm3 (4.10-5.30)
[2020-06-02 06:37] LABS: HEMATOCRIT 35.4 % (37.0-47.0)
[2020-06-02 06:44] LABS: ALBUMIN 2.9 gm/dL (3.5-5.0); BILIRUBIN,TOTAL 0.7 mg/dL (0.0-1.0); CALCIUM 8.2 mg/dL (8.4-10.2); CREATININE, serum 0.69 (0.52-1.25); POTASSIUM 3.5 mmol/L (3.4-5.0)
--- NOTE | 2020-06-02 10:36 | NUR ---
PATIENT IS RESTING IN BED AT THIS TIME
--- NOTE | 2020-06-02 11:14 | NUR ---
Maggi with [facility] [place] called stating pt is out of network for care and whoever she goes to for PCP/Alcohol tx would need to be accepted for their network or she will have to cover the cost. . Notified CHRISTINE Pryor of information concerning plans for discharge. Reviewed the case with Maggi for discharge planning.
--- NOTE | 2020-06-02 16:49 | NUR ---
machine strap buckler, Brittany, notified CHRISTINE that the patient's insurance is reporting that the patient is out of network for care and they will not cover the cost for care here. CHRISTINE notified Narda, Financial Counselor. Narda completed a Medicaid application with the patient. CHRISTINE presented the Release of Information Forms for Medicaid to the patient. The patient signed forms. CHRISTINE emailed the signed forms back to Narda. CHRISTINE then reviewed SNF vs home health. The patient reports that she still would like to return home and reports that she will need a taxi home. CHRISTINE to continue to follow.
--- NOTE | 2020-06-02 18:42 | NUR ---
PATIENT HAS BEEN UP AND DOWN ALL DAY LONG. PATIENT SETS THE BED ALARM OFF AND WILL GET UP ON HER OWN. EDUCATION GIVEN ON PLEASE WAIT FOR STAFF TO HELP HER. PATIENT IS CURIOUS ABOUT HOW DISCHARGES FROM THE HOSPITAL WORK SO EDUCATION WAS GIVEN THERE ABOUT WHAT ALL WOULD GO ON AND HAPPEN. PATIENT HAS BEEN SCORING ON THE CIWA SCALE ALL DAY AND RECEIVING ATIVAN Q2H. WILL REPORT OFF TO HUMAN RESOURCES SUPPORT SPECIALIST.
--- NOTE | 2020-06-02 20:00 | NUR ---
Received report from YUMIKO Day. A/O x4. Observed upper body and BUE shakiness. Pt tearful during conversation. C/O pain to back. PRN pain meds and aitvan and scheduled meds administered. Tele monitor in place, leads checked and replaced. PICC to SUMAN intact, flushed, dressing CDI. Bed alarm set. Call light within reach. Needs attended too.
[2020-06-03] VITALS (10 sets, daily range): BP systolic 100–142; BP diastolic 66–95; PULSE 76–104; TEMP 97.5–98.5
--- NOTE | 2020-06-03 02:08 | NUR ---
Pt awake at this time, dressed in own clothes and stating that she wants to go home. Pt unaware of time and place. Reoriented pt to place and situation. Pt sitting up at side of bed. Bed alarm set. PRN ativan administered per protocol. Will monitor pt.
--- NOTE | 2020-06-03 02:20 | NUR ---
Pt sitting up in recliner chair with chair alarm set and in place. Instructed pt to use call light when she wants to get up, pt voiced understanding. Call light within reach.
--- NOTE | 2020-06-03 03:15 | NUR ---
Pt laying in bed at this time, bed alarm set. Pt watching TV. Call light within reach.
--- NOTE | 2020-06-03 03:40 | NUR ---
Pt still awake at this time sitting on side of bed. PRN Ativan IV adminsitered per protocol. Bed alarm set. Call light within reach.
--- NOTE | 2020-06-03 05:16 | NUR ---
Pt states she needs a ride to go home to check on her house and son. Reoriented pt to time and situation. Pt back sitting in bed. PRN ativan administered per protocol. Bed alarm set. Call light within reach.
--- NOTE | 2020-06-03 06:22 | NUR ---
Scheduled meds administered. Pt laying in bed watching TV at this time. Pt apologized for wanting to leave earlier. Pt aware of place and situation. Bed alarm set. Call light within reach.
[2020-06-03 06:38] LABS: EOS % 0.7 % (0-4.0); GRAN # 2.9 (1.4-6.5); GRAN % 50.9 % (42.2-75.2); HEMOGLOBIN 12.3 g/dl (12.5-16.0); LYMPH # 2.2 (1.2-3.4); LYMPH % 38.3 % (20.0-51.0); MEAN CELL VOLUME 104 fl (80.0-100.0); MEAN CORPUSCULAR HEMOGLOBIN 36 pg (27.0-31.0); MEAN CORPUSCULAR HGB CONC 34 g/dl (33.0-37.0); MONO # 0.5 (0.1-0.6); MONO % 9.4 % (1.7-9.3); PLATELET COUNT 188 K/mm3 (130-400); RED BLOOD COUNT 3.45 M/mm3 (4.10-5.30); REDCELL DISTRIBUTION WIDTH-CV 13.2 % (11.5-14.5)
[2020-06-03 06:47] LABS: HEMATOCRIT 35.8 % (37.0-47.0)
[2020-06-03 06:53] LABS: CALCIUM 8.8 mg/dL (8.4-10.2); CREATININE, serum 0.7 (0.52-1.25); MAGNESIUM 1.7 mg/dL (1.6-2.3)
--- NOTE | 2020-06-03 07:17 | NUR ---
Report given to YUMIKO Contreras.
--- NOTE | 2020-06-03 07:20 | NUR ---
Patient is alert and oriented. appear agitated with moderate observable tremors. patient up without assistance. call light went off, shuffle unsteady gait. patient refuse to wear yellow gown indicating fall risk. patient back in with asssistance, call light within reach, bed alarm on, fall risk signs in place.
--- NOTE | 2020-06-03 18:58 | NUR ---
patient agree to change to yellow gown from her Pajamas. patient took multiple naps during the day.
--- NOTE | 2020-06-03 21:00 | NUR ---
Received report from YUMIKO Contreras. Pt sleeping in bed upon entry, easily awakened. Scheduled meds administered. PRN Ativan PO 1mg given per detox protocol. No tremors observed, pt seems calm and relaxed, pt ate 100% of dinner. Tele monitor in place. PICC to SUMAN in place, flushed, dressing CDI. Bed alarm set. Call light within reach.
[2020-06-04] VITALS (9 sets, daily range): BP systolic 104–140; BP diastolic 66–91; PULSE 73–99; TEMP 97.4–98.4
--- NOTE | 2020-06-04 00:33 | NUR ---
Pt awake at this time, requesting ativan and pain meds. Pt states feeling anxious, PRN ativan administered per detox protocol and prn pain meds given. Bed alarm set. Call light within reach.
--- NOTE | 2020-06-04 06:09 | NUR ---
Pt slept through the night waking only to use BSC. PRN pain and Ativan given per protocol. Scoring 2-5 on detox protocol. Needs met. Call light within reach.
[2020-06-04 07:19] LABS: BASO % 0.2 % (0.0-2.0); EOS % 0.7 % (0-4.0); GRAN # 2.3 (1.4-6.5); GRAN % 50.2 % (42.2-75.2); LYMPH # 1.7 (1.2-3.4); LYMPH % 36.9 % (20.0-51.0); MEAN CELL VOLUME 105 fl (80.0-100.0); MEAN CORPUSCULAR HEMOGLOBIN 36 pg (27.0-31.0); MEAN CORPUSCULAR HGB CONC 34 g/dl (33.0-37.0); MEAN PLATELET VOLUME 9.6 fl (7.4-10.4); MONO # 0.5 (0.1-0.6); MONO % 11.6 % (1.7-9.3); PLATELET COUNT 209 K/mm3 (130-400); RED BLOOD COUNT 3.07 M/mm3 (4.10-5.30); REDCELL DISTRIBUTION WIDTH-CV 13.5 % (11.5-14.5)
[2020-06-04 07:20] LABS: HEMATOCRIT 32.1 % (37.0-47.0)
--- NOTE | 2020-06-04 07:24 | NUR ---
Report given to YUMIKO Lemus.
[2020-06-04 07:35] LABS: ALBUMIN 2.6 gm/dL (3.5-5.0); BILIRUBIN,TOTAL 0.3 mg/dL (0.0-1.0); CALCIUM 8.3 mg/dL (8.4-10.2); CREATININE, serum 0.62 (0.52-1.25); POTASSIUM 3.4 mmol/L (3.4-5.0); TOTAL PROTEIN 5.4 gm/dL (6.4-8.2)
--- NOTE | 2020-06-04 08:49 | NUR ---
BEDSIDE SHIFT REPORT RECEIVED. PT SITTING UP IN BED. PLEASANT. REPORTS MILD GENERALIZED PAIN. AOX4. NO TREMORS NOTED. DENIES FEELING ANXIOUS.
[2020-06-04] MEDS ORDERED: LEVAQUIN 750MG750 M1 PO (11:55)
[2020-06-04] MEDS ORDERED: XANAX .25M0.25 MG/TA PO (11:56)
[2020-06-04] MEDS ORDERED: NORCO 325 MG-101 TAB PO (11:56)
[2020-06-04] MEDS ORDERED: ELIQUIS 5MG PO (11:56)
[2020-06-04] MEDS ORDERED: LASIX 20MG TABL20 MG PO (11:56)
[2020-06-04] MEDS ORDERED: LOPRESSOR 225 MG/TAB PO (11:56)
[2020-06-04] MEDS ORDERED: FOLIC ACID 11 MG/TA1 PO (11:57)
[2020-06-04] MEDS ORDERED: DUO-KAPS1 CAP PO (11:57)
[2020-06-04] MEDS ORDERED: PROTONIX 40MG T40 MG PO (11:57)
[2020-06-04] MEDS ORDERED: THIAMINE 1100 MG/TAB PO (11:57)
--- NOTE | 2020-06-04 12:49 | NUR ---
Patient is A&Ox4. Lung sounds were clear to auscultation and bowel sounds active q4. Pulses palpable bilaterally in upper and lower extremities. Upon skin assessment, calluses were noted on the bottom of the right foot. Callus on heel was large, banks, and cracked w/o any drainage. A smaller callus is located just below the second toe on the sole of the foot. This callus appears to be falling off, it is hard on the edges but soft in the center. No drainage noted in the second callus. Patient also has mulitple scabs and bruises on arms bilaterally. PICC line was DC'd and removed by charge nurse on 06/04.
--- NOTE | 2020-06-04 14:35 | NUR ---
Patient recieved discharge education. Currently awaiting clothes and taxi voucher. Walker to be delivered to home per case management. No bleeding at PICC line site.
--- NOTE | 2020-06-04 16:32 | NUR ---
CHRISTINE contacted due to patient dc'ing today. Dr. Sauer recommended SNF, patient refused and stated she was going home. CHRISTINE assisted with discharging planning. CHRISTINE assisted with obtaining voucher for a ride to her home in [place], completing documentation for patient to receive walker, document signed by Dr. Sauer. CHRISTINE asked patient company of choice. [facility] chosen, documenation faxed to company and patient recieved walker within the hour. Homehealth orders provided for patient to recieve services. CHRISTINE asked for patient of choice of agency. Patient provided [facility] would be fine as she didn't have a preference on which one to utilize. Documentation faxed to [facility]. Patient stated that she needed clothes to go home. CHRISTINE assisted with obtaining shorts and shirt for patient. CHRISTINE also called to confirm ride from [employer] for patient to her home upon DC. Nothing further.
--- NOTE | 2020-06-04 18:07 | NUR ---
PT GIVEN CLOTHES BY [facility], [facility] CALLED AND DISCHARGED @1600. INSTRUCTIONS GIVEN AND REVIEWED BY NURSE AND STUDENT. ALL CARE CORABORATED WITH STUDENT. NO NEW CONCERNS. PT STATES SHE FEELS GOOD FOR DISCHARGE. REFUSED SNIF. ESCORTED OUT.
--- NOTE | 2020-06-05 11:04 | NUR ---
LATE ENTRY: VERBAL ORDER RECEIVED FROM DR IRENE TO DISCONTINUE PICC LINE BEFORE DISCHARGE. ORDER PLACED LATE. PT DC'D ON [employer]. PICC NO LONGER IN USE
== END 2020-06-04 16:00 | disposition home or self-care (01) | DRG 177 ==
LOC: COL.ER 21:16 → MEDICAL 05-29 01:04 → ICU 05-29 01:04 → EU 05-31 10:02 → MEDICAL 05-31 14:30
PROVIDERS: Family Medicine; Nurse Practitioner Family; Physician Assistant; ADMIT Hospitalist
PROC: 02HV33Z Insertion of Infusion Device into Superior Vena Cava, Percutaneous Approach (ICD-10-PCS; principal; 2020-05-31)
DX: J15.1 Pneumonia due to Pseudomonas (principal); J96.01 Acute respiratory failure with hypoxia; F10.239 Alcohol dependence with withdrawal, unspecified; J44.0 Chronic obstructive pulmonary disease with (acute) lower respiratory infection; J44.1 Chronic obstructive pulmonary disease with (acute) exacerbation; I50.22 Chronic systolic (congestive) heart failure; Z20.828 Contact with and (suspected) exposure to other viral communicable diseases; I48.91 Unspecified atrial fibrillation; E87.6 Hypokalemia; R74.0 Nonspecific elevation of levels of transaminase and lactic acid dehydrogenase [LDH]; K21.0 Gastro-esophageal reflux disease with esophagitis; I11.0 Hypertensive heart disease with heart failure; I27.20 Pulmonary hypertension, unspecified; D69.6 Thrombocytopenia, unspecified; N85.9 Noninflammatory disorder of uterus, unspecified; M43.8X6 Other specified deforming dorsopathies, lumbar region; Z79.01 Long term (current) use of anticoagulants; F17.210 Nicotine dependence, cigarettes, uncomplicated; K44.9 Diaphragmatic hernia without obstruction or gangrene; R73.9 Hyperglycemia, unspecified; T38.0X5A Adverse effect of glucocorticoids and synthetic analogues, initial encounter
CPT/HCPCS: 99223-AI; 99231-AI; 99232-AI; 99233-AI; C1751; C1892; C9113; J1815; J2060; J2405; J2543; J2920; J2930; J3360; J3411; J3475; J7030; J7120; J7512; Q9967